=== PATIENT | male | born 1995 | race Caucasian/White ===

== ENCOUNTER 2017-04-06 12:53 | Emergency (ER) | payer OTHER ==
[~2017-04-06] VITALS: Ht 165.1 cm; Wt 70.0 kg
[~2017-04-06 12:53] MED LIST: HYDR-3511 PO
[2017-04-06 13:38] VITALS: BP 126/63
[2017-04-06] MEDS ORDERED: TETANUS, DIPHTHERIA, PERTUSSIS VAC/PF 0.5ML (>7YR OLD) IM ONE (15:45)
[2017-04-06] MEDS ORDERED: BACITRACIN ZINC OINT UDPKT TOP ONE (15:45)
[2017-04-06] MEDS ORDERED: LIDOCAINE HCL 1%/EPI 1:200,000 30 ML VIAL MC ONE (15:45)
[2017-04-06] MEDS ORDERED: LIDOCAINE HCL 1% 20ML VIAL (Pyxis) INJ INFIL ONE (16:00)
== END 2017-04-06 17:45 | disposition home or self-care (01) ==
LOC: ER 13:33
DX: S81.811A Laceration without foreign body, right lower leg, initial encounter (principal); V13.4XXA Pedal cycle driver injured in collision with car, pick-up truck or van in traffic accident, initial encounter; Y93.55 Activity, bike riding; Y99.8 Other external cause status; Y92.89 Other specified places as the place of occurrence of the external cause; Z88.0 Allergy status to penicillin
CPT/HCPCS: 12001; 72170; 73562; 73590; 90471; 90715; 99284; J3490

== ENCOUNTER 2022-04-06 22:29 | Emergency (ER) | payer MEDICAID, OTHER ==
[~2022-04-06] VITALS: Ht 167.6 cm; Wt 114.0 kg
[~2022-04-06 22:29] MED LIST changes: -HYDR-3511 PO; +HYDR-3512 PO
[2022-04-06] MEDS ORDERED: IPRATROPIUM/ALBUTEROL 0.5-3(2.5)MG/3ML NEB HHN ONE (23:45)
[2022-04-06] MEDS ORDERED: DEXAMETHASONE 4MG/ML 1ML VIAL IM ONE (23:45)
[2022-04-07] LABS: CHLORIDE 100 mEq/L (98-107)
[2022-04-07 00:01] LABS: BASOPHILS % 0.3 % (0.0-2.0); EOSINOPHILS % 4.9 % (0.0-5.0); HEMATOCRIT. 43.2 % (42.0-52.0); HEMOGLOBIN. 14.4 g/dL (14.0-18.0); LYMPHOCYTES % 23.9 % (20.0-50.0); MEAN CORPUSCULAR HEMOGLOBIN 29.3 pg (28.0-32.0); MEAN CORPUSCULAR VOLUME 87.7 fL (80.0-94.0); MEAN PLATELET VOLUME 9.8 fl (7.4-10.4); MONOCYTES % 10.6 % (2.0-8.0); NEUTROPHILS % 60.3 % (40.0-76.0); PLATELET 271 x1000/uL (130-400); RED BLOOD CELL COUNT 4.92 mill/uL (4.7-6.1); RED CELL DISTRIBUTION WIDTH 13.6 % (11.6-14.6)
[2022-04-07] MEDS ORDERED: P20 MT (00:10)
[2022-04-07] MEDS ORDERED: ALBU6.7H3 INH (00:10)
[2022-04-07] MEDS ORDERED: AZITHROMYCIN 500 MG TABLET PO ONE (00:45)
[2022-04-07] MEDS ORDERED: AZIT500T8 MT (00:45)
[2022-04-07] MEDS ORDERED: ALBUTEROL (0.083%) 2.5MG/3ML NEB HHN NR (01:30)
[2022-04-07] MEDS ORDERED: IPRATROPIUM BROMIDE (0.02%) 0.5MG/2.5ML NEB HHN NR (01:30)
[2022-04-07 02:20] VITALS: BP 123/66
== END 2022-04-07 02:20 | disposition home or self-care (01) ==
LOC: ER 22:29
DX: R06.02 Shortness of breath (principal); R07.89 Other chest pain; F15.10 Other stimulant abuse, uncomplicated; Z88.0 Allergy status to penicillin; Z79.899 Other long term (current) drug therapy
CPT/HCPCS: 36415; 71045; 80053; 84484; 85025; 93005; 94640; 96372; 99285; J1100; Z7610

== ENCOUNTER 2022-08-08 01:27 | Emergency (ER) | payer MEDICAID ==
[~2022-08-08] VITALS: Ht 170.2 cm; Wt 95.9 kg
[~2022-08-08 01:27] MED LIST changes: +ALBU6.7H3 INH; +AZIT500T8 MT; +P20 MT
[2022-08-08 01:36] VITALS: BP 127/55
[2022-08-08] MEDS ORDERED: IPRATROPIUM BROMIDE (0.02%) 0.5MG/2.5ML NEB HHN STA (01:49)
[2022-08-08] MEDS ORDERED: ALBUTEROL (0.083%) 2.5MG/3ML NEB HHN STA (01:49)
[2022-08-08] MEDS ORDERED: PREDNISONE 20MG TABLET PO STA (01:49)
[2022-08-08] MEDS ORDERED: P20 MT (01:52)
[2022-08-08] MEDS ORDERED: ALBU6.7H3 INH (01:52)
[2022-08-08] MEDS ORDERED: CETI-338 PO (03:29)
== END 2022-08-08 04:07 | disposition home or self-care (01) ==
LOC: ER 01:27
DX: J45.901 Unspecified asthma with (acute) exacerbation (principal); F15.10 Other stimulant abuse, uncomplicated; Z90.49 Acquired absence of other specified parts of digestive tract; Z79.899 Other long term (current) drug therapy; Z88.0 Allergy status to penicillin
CPT/HCPCS: 94644; 99285; J7512; Z7610